=== PATIENT | female | born 1980 | race Two or more races ===

== ENCOUNTER 2023-10-07 08:37 | Emergency (ER) | payer OTHER ==
[~2023-10-07] VITALS: Ht 170.2 cm; Wt 72.6 kg
[~2023-10-07 08:37] MED LIST: CEPH500C2 PO
[2023-10-07 08:42] VITALS: BP 108/72; TEMP 98
[2023-10-07] MEDS ORDERED: MUPI22OI2 TP (09:27)
[2023-10-07] MEDS ORDERED: SULF1TAB48 PO (09:27)
[2023-10-07] MEDS: BACI/NEOM/POLY B OINT PKT 1 UDPKT PACKET TP ONE (09:30)
[2023-10-07 09:40] VITALS: O2SAT 98
== END 2023-10-07 09:45 | disposition home or self-care (01) ==
LOC: ER 08:45
DX: L02.413 Cutaneous abscess of right upper limb (principal); L03.113 Cellulitis of right upper limb; Z48.00 Encounter for change or removal of nonsurgical wound dressing